=== PATIENT | male | born 2005 | race Hispanic/Latino ===

== ENCOUNTER 2025-03-10 18:07 | Emergency (ER) | payer SELFPAY ==
[2025-03-10] MEDS ORDERED: Ibuprofen 200 MG TAB ONE (20:37)
== END 2025-03-10 20:43 | disposition home or self-care (01) ==
LOC: ERS 18:07
DX: J18.9 Pneumonia, unspecified organism (principal); F17.290 Nicotine dependence, other tobacco product, uncomplicated
CPT/HCPCS: 87081; 87428; 87430; 99283